=== PATIENT | female | born 1950 | race Caucasian/White ===

== ENCOUNTER 2018-03-21 20:47 | Day surgery (SDC) | payer OTHER ==
[~2018-03-21] VITALS: Ht 167.6 cm; Wt 86.2 kg
[~2018-03-21 20:47] MED LIST: ASPIRIN81 M4 PO; AUGMENTIN 875-1 EACH PO; BALANCED B COM1 EACH PO; CALCIUM 500 +1 EAC5 PO; DAILY MULTIPLE1 EACH PO; LOSARTAN-HCTZ1 EAC1 PO; PROBIOTIC1 EACH PO; SULFAMETHOXAZO1 EAC1 PO; VITAMIN C500 M7 PO
--- NOTE | 2018-03-21 21:12 | ED GI/GU/ABDOMINAL COMPLAINT ---
History of Present Illness General Chief Complaint: Abdominal Pain/Flank Pain Stated Complaint: "PAIN ACROSS MY STOMACH" Source: patient, family, old records Exam Limitations: no limitations Vital Signs & Intake/Output Vital Signs & Intake/Output Vital Signs Date Time Temp Pulse Resp B/P B/P Pulse O2 O2 Flow FiO2 Mean Ox Delivery Rate 03/21 2051 96.4 80 18 167/77 98 Room Air Allergies Coded Allergies: nitrofurantoin (From MACROBID) (Mild, HIVES 04/01/16) phenazopyridine (From PYRIDIUM) (Mild, HIVES 04/01/16) Reconcile Medications Amoxicillin/Potassium Clav (Augmentin 875-125 Tablet) 1 EACH TABLET 1 TAB PO BID SINUSITIS Ascorbic Acid (Vitamin C) 500 MG CAPSULE.ER 1 CAP PO DAILY SUPPLEMENT ( Reported) Aspirin (Aspirin*) 81 MG TAB.CHEW 1 TAB PO DAILY HEART (Reported) Calcium Carbonate/Vitamin D3 (Calcium 500 + D Tablet) 1 EACH TABLET 1 TAB PO BID SUPPL (Reported) Lactobacillus Acidophilus (Probiotic) 1 EACH CAPSULE 1 CAP PO D 0800 ( Reported) Losartan/Hydrochlorothiazide (Losartan-Hctz 50-12.5 MG Tab) 1 EACH TABLET 1 TAB PO DAILY HTN (Reported) Multivitamin (Daily Multiple Vitamin) 1 EACH TABLET 1 TAB PO DAILY SUPPLE ( Reported) Sulfamethoxazole/Trimethoprim (Sulfamethoxazole-Tmp Ds Tablet) 1 EACH TABLET 1 TAB PO BID 0800 (Reported) Vitamin B Complex & Vit C No.3 (Balanced B Complex-Vit C) 1 EACH TABLET.ER 1 TAB PO BID SUPPLEMENT (Reported) Triage Note: PT TO TRIAGE C/O PAIN ACROSS CENTER OF ABD ALL DAY, RELIEVED WITH TUMS, BUT RETURNED AFTER EATING DINNER. PT STATES AT LUNCH HAD PASTA WITH TOMATOES FROM A RESTAURANT. DENIES N/V/D. STATES HAD BM TODAY, NORMAL PER PT. DENIES URINARY S/SX. Triage Nurses Notes Reviewed? yes ? N Is pt currently ? No HPI: Shortly after having lunch patient developed a pain in her right upper quadrant. The pain then began to radiate across to her left upper quadrant. Patient was slightly nauseous however that has resolved. The pain worsened after eating dinner. Subsequently the pain has left her left upper quadrant and is currently only in the right upper quadrant. The pain is also improved however it is still present. At its worst the pain was 8 out of 10 and currently is a 4 out of 10. She is no longer nauseous. There are no fevers or chills. There is no diarrhea. The pain is cramping in nature. Past History Travel History Traveled to [place] past 21 day No Medical History Any Pertinent Medical History? see below for history Neurological: NONE EENT: NONE Cardiovascular: hypertension Respiratory: NONE Gastrointestinal: NONE Hepatic: NONE Renal: NONE Musculoskeletal: NONE Psychiatric: NONE Endocrine: NONE Blood Disorders: NONE Cancer(s): NONE PARALEGAL SUPERVISOR/Reproductive: NONE Surgical History Surgical History: non-contributory Psychosocial History What is your primary language Wallisian Tobacco Use: Never used ETOH Use: occasional use Illicit Drug Use: denies illicit drug use Family History Hx Contributory? No Review of Systems Review of Systems Constitutional: Reports: no symptoms. EENTM: Reports: no symptoms. Respiratory: Reports: no symptoms. Cardiovascular: Reports: no symptoms. GI: Reports: see HPI, abdominal pain. Genitourinary: Reports: no symptoms. Musculoskeletal: Reports: no symptoms. Skin: Reports: no symptoms. Neurological/Psychological: Reports: no symptoms. Hematologic/Endocrine: Reports: no symptoms. Immunologic/Allergic: Reports: no symptoms. All Other Systems: Reviewed and Negative Physical Exam Physical Exam General Appearance: well developed/nourished, alert, awake, anxious, mild distress Head: atraumatic, normal appearance Eyes: Bilateral: PERRL, EOMI. Ears, Nose, Throat, Mouth: hearing grossly normal, moist mucous membrane Neck: normal inspection, supple, full range of motion Respiratory: normal breath sounds, chest non-tender, no respiratory distress, lungs clear Cardiovascular: regular rate/rhythm, normal peripheral pulses Gastrointestinal: normal bowel sounds, soft, no organomegaly, tenderness (RUQ), POSITIVE MONTES'S Back: normal inspection, normal range of motion Extremities: normal range of motion Neurologic/Psych: no motor/sensory deficits, awake, alert, oriented x 3, normal gait, normal mood/affect Skin: intact, normal color, warm/dry Core Measures ACS in differential dx? No Sepsis Present: No Sepsis Focused Exam Completed? No Progress Differential Diagnosis: AMI, biliary colic, cholecystitis, gastritis, hepatitis, ischemic bowel, inflamm bowel dis, pancreatitis Plan of Care: Orders Procedure Date/time Status URINALYSIS 03/21 2058 Complete TROPONIN LEVEL 03/21 2058 Complete LIPASE 03/21 2058 Complete COMPREHENSIVE METABOLIC PANEL 03/21 2058 Complete CBC WITHOUT DIFFERENTIAL 03/21 2058 Complete AMYLASE 03/21 2058 Complete EKG 03/21 2058 Active Laboratory Tests 03/21/18 2232: Urine Color STRAW, Urine Clarity CLEAR, Urine pH 6.0, Ur Specific [place] <= 1.005, Urine Protein NEG, Urine Ketones NEG, Urine Nitrite NEG, Urine Bilirubin NEG, Urine Urobilinogen 0.2, Ur Leukocyte Esterase NEG, Ur Microscopic SEDIMENT EXAMINED, Urine RBC RARE, Urine WBC RARE, Ur Epithelial Cells RARE, Urine Bacteria RARE H, Urine Hemoglobin TRACE-INTACT, Urine Glucose NEG 03/21/18 2131: Anion Gap 10, Estimated GFR > 60, BUN/Creatinine Ratio 28.8 H, Glucose 107 H, Calcium 9.9, Total Bilirubin 0.5, AST 28, ALT 27, Alkaline Phosphatase 47, Troponin I < 0.01, Total Protein 7.1, Albumin 4.2, Globulin 2.9, Albumin/ Globulin Ratio 1.4, Amylase 63, Lipase 154, CBC w Diff NO MAN DIFF REQ, RBC 4.80 , MCV 89.8, MCH 30.0, MCHC 33.4, RDW 13.5, MPV 8.5, Gran % 62.2, Lymphocytes % 27.9, Monocytes % 6.7, Eosinophils % 2.5, Basophils % 0.7, Absolute Granulocytes 5.2, Absolute Lymphocytes 2.3, Absolute Monocytes 0.6, Absolute Eosinophils 0.2, Absolute Basophils 0.1 Diagnostic Imaging: Viewed by Me: CT Scan. Discussed w/RAD: CT Scan. Radiology Impression: PATIENT: YOMI AGUIAR PRESENT AGE: 67 PATIENT ACCOUNT NO: [id number] : 48 LOCATION: [facility] ORDERING PHYSICIAN: Yulisa Turcios MD SERVICE DATE: 03/21/18 EXAM TYPE: CAT - CT ABD & PELVIS W IV CONTRAST EXAMINATION: CT ABDOMEN AND PELVIS WITH CONTRAST CLINICAL INFORMATION: Right upper quadrant abdominal pain. Evaluate for cholecystitis. COMPARISON: MRI abdomen 04/22/2017. TECHNIQUE: Multidetector volumetric imaging was performed of the abdomen and pelvis following IV administration of 95 mL of Optiray 320 intravenous contrast. Sagittal and coronal reformatted images were obtained on the technologist's workstation. DLP: 512.96 mGy-cm FINDINGS: LUNG BASES: There is bibasilar subsegmental atelectasis. No pleural or pericardial effusion. LIVER, GALLBLADDER, AND BILIARY TREE: Liver attenuation is homogeneous with no evidence of a discrete hepatic parenchymal mass. Grossly no intrahepatic or extrahepatic biliary ductal dilatation. The gallbladder is distended with a fundal diameter of 4.8 cm. There is suspected to be mild gallbladder wall thickening for instance best illustrated on axial image 34 of 103 series 2. A few ill-defined calculi are visualized layering within the gallbladder neck. PANCREAS: Unremarkable. SPLEEN: Unremarkable. ADRENAL GLANDS: Unremarkable. KIDNEYS AND URETERS: Kidneys demonstrate symmetric corticomedullary enhancement characteristics. There is no discrete renal parenchymal mass. No abnormal perinephric inflammation or collection. No hydronephrosis. No abnormal mass or calcification is visualized along the expected course of the right or left ureter. BLADDER: Unremarkable. GASTROINTESTINAL TRACT: There is a small sliding hiatal hernia. Stomach is physiologically distended with ingested material. Small bowel is unremarkable. Grossly no evidence of obstruction. No free intraperitoneal air or fluid. There is slightly increased attenuation within the mesenteric fat that appears grossly stable when compared to prior imaging as well as a few scattered nonspecific mesenteric lymph nodes. The appendix is normal. A few diverticula are visualized primarily within the distal descending and sigmoid colon. No evidence of acute diverticulitis. ABDOMINAL WALL: No significant hernia is appreciated. VASCULAR: The abdominal aorta and inferior vena cava are grossly unremarkable. PELVIC VISCERA: The uterus is not visualized. No abnormal adnexal mass. OSSEOUS STRUCTURES: There is no acute osseous finding. No evidence of acute fracture and no spinal subluxation. IMPRESSION: There are a few ill-defined calculi that are layering within the gallbladder neck and the gallbladder is grossly distended with a fundal diameter of 4.8 cm. There is suspected gallbladder wall thickening that supports the clinical suspicion of acute cholecystitis. The sensitivity and specificity of CT for the identification of acute cholecystitis is however relatively poor therefore a right upper quadrant ultrasound is recommended for better anatomic characterization. Otherwise stable examination. Specifically the appearance of the mesenteric fat with a few scattered nonspecific mesenteric lymph nodes remains unchanged when compared to prior imaging. A few scattered diverticula are visualized within the descending and sigmoid colon. No evidence of acute diverticulitis. DICTATED BY: Ivy DEUTSCH,Vinod Reyes DATE/TIME DICTATED: 03/21/182225 QUALITY AUDITOR:FREYA DATE/TIME TRANSCRIBED:03/21/182225 CONFIDENTIAL, DO NOT COPY WITHOUT APPROPRIATE AUTHORIZATION. <Electronically signed in Other Vendor System> SIGNED BY: Ivy DEUTSCH,Vinod Reyes 03/21/18 8953 Initial ED EKG: NSR, LVH, nonspecific ST T wave chg Prior EKG: unchanged Comments: Patient is pain-free after IV Toradol. On reexamination patient is top steep tender in the right upper quadrant with positive Montes sign. Discussed with Dr. Reese. Patient will placed in on his and will have a left Cholecystectomy tomorrow. Departure Departure Disposition: STILL A PATIENT Condition: Stable Clinical Impression Primary Impression: Cholecystitis Referrals: Jus DEUTSCH,Ernst Witt (PCP/Family) Departure Forms: Customer Survey General Discharge Information Observation Note Spoke With: Geovanny Skinner DO Physician Advisor Notified: NORY DEUTSCH,YULISA Hernadez Place Patient In: Non-ED OBS Care Area Rationale for Observation: My rational for observation is as follows [PAIN CONTROL, LAP KELSEY].
[2018-03-21 21:38] LABS: ABSOLUTE BASOPHIL COUNT 0.1 /CUMM (0.0-0.2); ABSOLUTE EOSINOPHIL COUNT 0.2 /CUMM (0.0-0.7); ABSOLUTE GRANULOCYTE CT 5.2 /CUMM (1.4-6.5); ABSOLUTE LYMPH COUNT 2.3 /CUMM (1.2-3.4); ABSOLUTE MONOCYTE COUNT 0.6 /CUMM (0.10-0.60); BASOPHIL % 0.7 % (0.0-2.0); EOSINOPHIL % 2.5 % (0-5); GRANULOCYTE % 62.2 % (42.2-75.2); HEMATOCRIT 43.1 % (37-47); MEAN CORPUSCULAR HGB CONC 33.4 G/DL (33.0-37.0); MEAN CORPUSCULAR VOLUME 89.8 FL (81.0-99.0); MEAN PLATELET VOLUME 8.5 FL (7.4-10.4); PLATELET COUNT 247 /CUMM (130-400); RBC DISTRIBUTION WIDTH 13.5 % (11.5-14.5); WHITE BLOOD CELL COUNT 8.3 /CUMM (4.8-10.8)
--- NOTE | 2018-03-21 22:45 | CT SCAN REPORT ---
EXAMINATION: CT ABDOMEN AND PELVIS WITH CONTRAST CLINICAL INFORMATION: Right upper quadrant abdominal pain. Evaluate for cholecystitis. COMPARISON: MRI abdomen 04/22/2017. TECHNIQUE: Multidetector volumetric imaging was performed of the abdomen and pelvis following IV administration of 95 mL of Optiray 320 intravenous contrast. Sagittal and coronal reformatted images were obtained on the technologist's workstation. DLP: 512.96 mGy-cm FINDINGS: LUNG BASES: There is bibasilar subsegmental atelectasis. No pleural or pericardial effusion. LIVER, GALLBLADDER, AND BILIARY TREE: Liver attenuation is homogeneous with no evidence of a discrete hepatic parenchymal mass. Grossly no intrahepatic or extrahepatic biliary ductal dilatation. The gallbladder is distended with a fundal diameter of 4.8 cm. There is suspected to be mild gallbladder wall thickening for instance best illustrated on axial image 34 of 103 series 2. A few ill-defined calculi are visualized layering within the gallbladder neck. PANCREAS: Unremarkable. SPLEEN: Unremarkable. ADRENAL GLANDS: Unremarkable. KIDNEYS AND URETERS: Kidneys demonstrate symmetric corticomedullary enhancement characteristics. There is no discrete renal parenchymal mass. No abnormal perinephric inflammation or collection. No hydronephrosis. No abnormal mass or calcification is visualized along the expected course of the right or left ureter. BLADDER: Unremarkable. GASTROINTESTINAL TRACT: There is a small sliding hiatal hernia. Stomach is physiologically distended with ingested material. Small bowel is unremarkable. Grossly no evidence of obstruction. No free intraperitoneal air or fluid. There is slightly increased attenuation within the mesenteric fat that appears grossly stable when compared to prior imaging as well as a few scattered nonspecific mesenteric lymph nodes. The appendix is normal. A few diverticula are visualized primarily within the distal descending and sigmoid colon. No evidence of acute diverticulitis. ABDOMINAL WALL: No significant hernia is appreciated. VASCULAR: The abdominal aorta and inferior vena cava are grossly unremarkable. PELVIC VISCERA: The uterus is not visualized. No abnormal adnexal mass. OSSEOUS STRUCTURES: There is no acute osseous finding. No evidence of acute fracture and no spinal subluxation. IMPRESSION: There are a few ill-defined calculi that are layering within the gallbladder neck and the gallbladder is grossly distended with a fundal diameter of 4.8 cm. There is suspected gallbladder wall thickening that supports the clinical suspicion of acute cholecystitis. The sensitivity and specificity of CT for the identification of acute cholecystitis is however relatively poor therefore a right upper quadrant ultrasound is recommended for better anatomic characterization. Otherwise stable examination. Specifically the appearance of the mesenteric fat with a few scattered nonspecific mesenteric lymph nodes remains unchanged when compared to prior imaging. A few scattered diverticula are visualized within the descending and sigmoid colon. No evidence of acute diverticulitis.
--- NOTE | 2018-03-21 23:56 | History & Physical Pre-Op ---
Desiree Pleitez 03/21/18 6226: General Information and HPI MD Statement: I have seen and personally examined YOMI AGUIAR and documented this H&P. The patient is a 67 year old F who presented with a patient stated chief complaint of [ABDOMINAL PAIN]. Source of Information: patient Exam Limitations: no limitations History of Present Illness: This 67 year old female with past medical history including hypertension and gerd, presents with abdominal pain that started earlier today. She reports pain across her abdomen, with more severe pain along her right upper side. She denies history of similar episodes of pain. No fevers / chills / or sweats. No shortness of breath. No chest pains. No recent illnesses. She is unaware of a personal history of gallstones, but admits her mother had gallstones and required her gallbladder removed. Allergies/Medications Allergies: Coded Allergies: nitrofurantoin (From MACROBID) (Mild, HIVES 04/01/16) phenazopyridine (From PYRIDIUM) (Mild, HIVES 04/01/16) Past History Medical History Neurological: NONE EENT: NONE Cardiovascular: hypertension Respiratory: NONE Gastrointestinal: GERD Hepatic: NONE Renal: NONE Musculoskeletal: NONE Psychiatric: NONE Endocrine: NONE Blood Disorders: NONE Cancer(s): NONE AIRCRAFT MAINTENANCE ENGINEER/Reproductive: NONE Surgical History Pertinent Surgical History: hysterectomy Past Family/Social History Family History Relations & Conditions if any MOTHER FHx: atrial fibrillation FHx: gallstones FATHER FHx: lung cancer Psychosocial History Where Do You Live? Home Who Do You Live With? spouse Services at Home None Primary Language: Martiniquais Smoking Status: Former Smoker (5 pack/year history, 50yrs ago) ETOH Use: occasional use Illicit Drug Use: denies illicit drug use Employment History Employment: Employed Profession/Employer: HR education and training coordinator Review of Systems Review of Systems: admits: abdominal pain denies: fevers / chills / sweats, shortness of breath, chest pains, dizziness, dysuria Exam & Diagnostic Data Last 24 Hrs of Vital Signs/I&O Vital Signs Date Time Temp Pulse Resp B/P B/P Pulse O2 O2 Flow FiO2 Mean Ox Delivery Rate 03/21 2051 96.4 80 18 167/77 98 Room Air Physical Exam: General - alert & oriented x 3. comfortable. no acute distress. skin - warm, dry, and smooth. no rashes. no jaundice appreciated. Lungs - clear bilaterally. no w/r/r. Cardiac - s1s2. reg. Abdomen - soft. right upper quadrant tenderness appreciated with +murphys sign. Extremities - warm bilaterally. trace edema bilateral ankles. calves soft and nontender. nvi. Neuro - speech smooth and coordinated. no focal deficits. Last 24 Hrs of Labs/Basilio: Laboratory Tests 03/21/182: Urine Color STRAW, Urine Clarity CLEAR, Urine pH 6.0, Ur Specific [place] <= 1.005, Urine Protein NEG, Urine Ketones NEG, Urine Nitrite NEG, Urine Bilirubin NEG, Urine Urobilinogen 0.2, Ur Leukocyte Esterase NEG, Ur Microscopic SEDIMENT EXAMINED, Urine RBC RARE, Urine WBC RARE, Ur Epithelial Cells RARE, Urine Bacteria RARE H, Urine Hemoglobin TRACE-INTACT, Urine Glucose NEG 03/21/18 2131: Anion Gap 10, Estimated GFR > 60, BUN/Creatinine Ratio 28.8 H, Glucose 107 H, Calcium 9.9, Total Bilirubin 0.5, AST 28, ALT 27, Alkaline Phosphatase 47, Troponin I < 0.01, Total Protein 7.1, Albumin 4.2, Globulin 2.9, Albumin/ Globulin Ratio 1.4, Amylase 63, Lipase 154, CBC w Diff NO MAN DIFF REQ, RBC 4.80 , MCV 89.8, MCH 30.0, MCHC 33.4, RDW 13.5, MPV 8.5, Gran % 62.2, Lymphocytes % 27.9, Monocytes % 6.7, Eosinophils % 2.5, Basophils % 0.7, Absolute Granulocytes 5.2, Absolute Lymphocytes 2.3, Absolute Monocytes 0.6, Absolute Eosinophils 0.2, Absolute Basophils 0.1 Diagnostic Data Other Results EXAM TYPE: CAT - CT ABD & PELVIS W IV CONTRAST EXAMINATION: CT ABDOMEN AND PELVIS WITH CONTRAST CLINICAL INFORMATION: Right upper quadrant abdominal pain. Evaluate for cholecystitis. COMPARISON: MRI abdomen 04/22/2017. TECHNIQUE: Multidetector volumetric imaging was performed of the abdomen and pelvis following IV administration of 95 mL of Optiray 320 intravenous contrast. Sagittal and coronal reformatted images were obtained on the technologist's workstation. DLP: 512.96 mGy-cm FINDINGS: LUNG BASES: There is bibasilar subsegmental atelectasis. No pleural or pericardial effusion. LIVER, GALLBLADDER, AND BILIARY TREE: Liver attenuation is homogeneous with no evidence of a discrete hepatic parenchymal mass. Grossly no intrahepatic or extrahepatic biliary ductal dilatation. The gallbladder is distended with a fundal diameter of 4.8 cm. There is suspected to be mild gallbladder wall thickening for instance best illustrated on axial image 34 of 103 series 2. A few ill-defined calculi are visualized layering within the gallbladder neck. PANCREAS: Unremarkable. SPLEEN: Unremarkable. ADRENAL GLANDS: Unremarkable. KIDNEYS AND URETERS: Kidneys demonstrate symmetric corticomedullary enhancement characteristics. There is no discrete renal parenchymal mass. No abnormal perinephric inflammation or collection. No hydronephrosis. No abnormal mass or calcification is visualized along the expected course of the right or left ureter. BLADDER: Unremarkable. GASTROINTESTINAL TRACT: There is a small sliding hiatal hernia. Stomach is physiologically distended with ingested material. Small bowel is unremarkable. Grossly no evidence of obstruction. No free intraperitoneal air or fluid. There is slightly increased attenuation within the mesenteric fat that appears grossly stable when compared to prior imaging as well as a few scattered nonspecific mesenteric lymph nodes. The appendix is normal. A few diverticula are visualized primarily within the distal descending and sigmoid colon. No evidence of acute diverticulitis. ABDOMINAL WALL: No significant hernia is appreciated. VASCULAR: The abdominal aorta and inferior vena cava are grossly unremarkable. PELVIC VISCERA: The uterus is not visualized. No abnormal adnexal mass. OSSEOUS STRUCTURES: There is no acute osseous finding. No evidence of acute fracture and no spinal subluxation. IMPRESSION: There are a few ill-defined calculi that are layering within the gallbladder neck and the gallbladder is grossly distended with a fundal diameter of 4.8 cm. There is suspected gallbladder wall thickening that supports the clinical suspicion of acute cholecystitis. The sensitivity and specificity of CT for the identification of acute cholecystitis is however relatively poor therefore a right upper quadrant ultrasound is recommended for better anatomic characterization. Otherwise stable examination. Specifically the appearance of the mesenteric fat with a few scattered nonspecific mesenteric lymph nodes remains unchanged when compared to prior imaging. A few scattered diverticula are visualized within the descending and sigmoid colon. No evidence of acute diverticulitis. DICTATED BY: Ivy DEUTSCH,Vinod Reyes DATE/TIME DICTATED:03/21/182225 CAN MARKER:FREYA DATE/TIME TRANSCRIBED:03/21/182225 Assessment/Plan Assessment/Plan: This 67 year old female with history of htn, and gerd, presents with acute calculous cholecystitis npo after midnight pain control as needed iv unasyn q6 protonix - gi ppx hep sc post-op tomorrow losartan / hctz ordered OR tomorrow for laparoscopic cholecystectomy by observation status given possibility of discharge to home after surgery As Ranked By This Provider Problem List: 1. Cholecystitis 2. GERD (gastroesophageal reflux disease) 3. Hypertension 4. Gallstones Copies To: Jus DEUTSCH,Ernst Skinner Shell WOOTENGeovanny 03/27/18 3895: General Information and HPI Allergies/Medications Home Med list Ascorbic Acid (Vitamin C) 500 MG CAPSULE.ER 1 CAP PO DAILY SUPPLEMENT ( Reported) Aspirin (Aspirin*) 81 MG TAB.CHEW 1 TAB PO DAILY HEART (Reported) Calcium Carbonate/Vitamin D3 (Calcium 500 + D Tablet) 1 EACH TABLET 1 TAB PO BID SUPPL (Reported) Lactobacillus Acidophilus (Probiotic) 1 EACH CAPSULE 1 CAP PO D 0800 ( Reported) Losartan/Hydrochlorothiazide (Losartan-Hctz 50-12.5 MG Tab) 1 EACH TABLET 1 TAB PO DAILY HTN (Reported) Multivitamin (Daily Multiple Vitamin) 1 EACH TABLET 1 TAB PO DAILY SUPPLE ( Reported) Oxycodone HCl/Acetaminophen (Percocet 5-325 MG Tablet) 5 MG-325 MG TABLET 1-2 TAB PO Q4-6 PRN PRN pain any scale tylenol alternatively. do not combine. Vitamin B Complex & Vit C No.3 (Balanced B Complex-Vit C) 1 EACH TABLET.ER 1 TAB PO BID SUPPLEMENT (Reported) Attending MD Review Statement Attending Statement Attending MD Statement: discuss w/resident/PA/SKIN DRIER, agreed w/resident/PA/SKIN DRIER, discussed with family, reviewed images
[2018-03-22 09:57] VITALS: BP 147/68
--- NOTE | 2018-03-22 11:25 | Patient Discharge Instructions ---
Discharge Instructions General Discharge Information You were seen/treated for: gallstones, acute cholecystitis You had these procedures: laparoscopic cholecystectomy (03/22/18) Watch for these problems: fever>101.3, increased pain, redness/swelling/drainage, dizziness, shortness of breath, chest pains No bath, but you may shower: Yes Other wound care: incisions closed with skin glue. ok to shower. keep incisions clean & dry. Diet Continue normal diet: Yes Recommended Diet: Low Fat Activity Full Activity/No Limits: No Activity Self Limited: Yes Pounds, do NOT lift more than: 10 Other activity limits: no heavy lifting. no strenuous activity. Acute Coronary Syndrome Inclusion Criteria At DC or during hospital stay patient has or had the following: ACS DIAGNOSIS No Discharge Core Measures Meds if any: Prescribed or Continued at Discharge Meds if any: NOT Prescribed or Continued at Discharge Congestive Heart Failure Inclusion Criteria At DC or during hospital stay patient has or had the following: CHF DIAGNOSIS No Discharge Core Measures Meds if any: Prescribed or Continued at Discharge Meds if any: NOT Prescribed or Continued at Discharge Cerebrovascular accident Inclusion Criteria At DC or during hospital stay patient has or had the following: CVA/TIA Diagnosis No Discharge Core Measures Meds if any: Prescribed or Continued at Discharge Meds if any: NOT Prescribed or Continued at Discharge Venous thromboembolism Inclusion Criteria VTE Diagnosis No VTE Type NONE VTE Confirmed by (Test) NONE Discharge Core Measures - Per Current guidelines, there needs to be overlap - treatment for the first 5 days of Warfarin therapy. - If discharged on Warfarin prior to 5 days of - overlap therapy, the patient will need to be - assessed for post discharge needs including - *Post discharge parental anticoagulation - *Warfarin and/or parental anticoagulation education - *Follow up date to check INR post discharge At least 5 days overlap therapy as Inpatient No Meds if any: Prescribed or Continued at Discharge Note: Overlap Therapy is Warfarin and Anticoagulant Meds if any: NOT Prescribed or Continued at Discharge
[2018-03-22] MEDS ORDERED: PERCOCET 5-3251 EACH PO ×2 (11:30→11:31)
--- NOTE | 2018-03-22 11:40 | Surg Short-stay <48hrs Dis Sum ---
Visit Information Visit Dates Admission Date: 03/21/18 Discharge Date: 03/22/18 Surgical Short Stay DC Summary Admission Diagnosis: acute calculous cholecystitis Final Diagnosis: same as above, s/p laparoscopic cholecystectomy (03/22/18) Procedure(s): laparoscopic cholecystectomy (03/22/18) Summary/Significant Findings: Presented to the ED on 03/21/18 with abdominal pain, and was found to have acute calculous cholecystitis by CT scan. She was started on iv unasyn and placed into observation status. She was taken to the OR on 03/22/18 by for a laparoscopic cholecystectomy. She was discharged to home once her pain was controlled and she was tolerating a diet. Condition at Discharge: stable Discharge Disposition: home or self care Discharge instructions provided to patient/family: Yes Post discharge follow-up plan: 2 week follow up appointment with Copies to: Jus DEUTSCH,Ernst Witt
--- NOTE | 2018-03-28 10:47 | Operative Report ---
Operative/Inv Procedure Report Surgery Date: 03/22/18 Name of Procedure: laparoscopic cholecystectomy Pre-Operative Diagnosis: cholecystitis Post-Operative Diagnosis: as above Estimated Blood Loss: less than 50ml Surgeon/Valet Parker: Jorge Velez MD Anesthesia: general endotracheal tube IV Fluids: 1Lns Implants: none Urine Output: not monitored Drains: none Specimens: gallbladder Microbiology: none Tourniquet: none Complications: none Condition: improved and transfered to PACU Operative Indication: cholecystitis Operative/Procedure Note Note: after informed consent was obtained with all the risks and benefits of the procedure explained in full detail the patient was taken to the operating room and placed supine on the operating room table. once on the table while she was still awake a surgical time our was performed. then the general endotracheal anesthesia was induced. the patient was then prepped with a chlorhexidine based solution which was allowed to dry for 3 minutes and then a sterile drape placed. A surgical pause was then performed. attention was then turned to the umbilicus where a 1.5cm transverse incision was made just above the umbilicus with a 15 blade. then with electrocautery, dissection to the fascia was performed and a jesus clamp used to grasp the umbilical stalk. then an incision was made in the linea alba measureing approximately a centimeter with the electrocautery, and the peritoneum breached with a julieth clamp. a loose figure of 8 0 Vicryl suture was then placed in the fascia to be used as a stay stitch and then later for closing. a 10mm agarwal was placed, secured and insufflation to 15mmHg was obtained. then under direct vision a 11mm port was placed subxyphoid, and then 2 5mm ports in the RUQ. these were all without complication and no bleeding noted. then the dome of the gallbladder was grasped with a wavy grasper and retracted up and over the liver. there were some adhession of omentum and transverse colon to the gallbladder which were taken down with electrcautery hook. then with blunt and electrocautery dissection, the fundus was exposed and grasped. this was retracted and then the cystic duct and artery dissected free from the surrounding fibrous tissue which was dense and very fatty. the critical view of safety was obtained, and then 2 10mm clips were placed proximally and 1 distally on both of the structures. then they were transected and the gallbladder carefully removed from the liver bed. hemostasis was maintained. the gallbladder was then placed in an endocatch bag, the liver checked for hemostasis again and the abdomen thrououghly washed out with suction and water. the subxyphoid and RUQ ports were removed under direct vision and hemostasis noted, insufflation was let down, the umbilical agarwal was removed, then gallbadder removed, and then the 0 vicryl was tied down and the fascia closed. 4-0 monocryl was used for skin closure, and then skin glue as a dressing. all needle and sponge counts were correct, and I was scrubbed for the entire case. patient was transfered to the PACU without incident. Findings: inflammed gallbladder Discharge Disposition: PACU CC: Rosie DEUTSCH,Jorge
== END 2018-03-22 ==
LOC: ERH 20:47 → ERHI 23:14 → ERH 23:14 → ENTRNSPT 03-22 10:15 → EDTRNSPT 03-22 10:22 → EDTRNSPTSTS 03-22 10:22 → CMPTRNSPT 03-22 10:34 → STS 03-22 10:45 → ERHI 03-22 10:45
PROVIDERS: Emergency Medicine
DX: K80.10 Calculus of gallbladder with chronic cholecystitis without obstruction (principal); I10 Essential (primary) hypertension; K21.9 Gastro-esophageal reflux disease without esophagitis
CPT/HCPCS: 74177; 81001; 93005; 93010; 96361; 96374; C9290; J0131; J1644; J1885; J3490; J7042

== ENCOUNTER 2018-05-10 05:14 | Emergency (ER) | payer OTHER ==
[~2018-05-10 05:14] MED LIST changes: +PERCOCET 5-3251 EACH PO
--- NOTE | 2018-05-10 07:30 | ED GENERAL ADULT ---
See Addendum History of Present Illness General Chief Complaint: Headache Stated Complaint: GORE, DIZZINESS Source: patient Exam Limitations: no limitations Vital Signs & Intake/Output Vital Signs & Intake/Output Vital Signs Date Time Temp Pulse Resp B/P B/P Pulse O2 O2 Flow FiO2 Mean Ox Delivery Rate 05/10 0637 98.3 58 18 169/74 98 Room Air 05/10 0559 69 20 167/81 97 Allergies Coded Allergies: nitrofurantoin (From MACROBID) (Mild, HIVES 04/01/16) phenazopyridine (From PYRIDIUM) (Mild, HIVES 04/01/16) Reconcile Medications Ascorbic Acid (Vitamin C) 500 MG CAPSULE.ER 1 CAP PO DAILY SUPPLEMENT ( Reported) Aspirin (Aspirin*) 81 MG TAB.CHEW 1 TAB PO DAILY HEART (Reported) Calcium Carbonate/Vitamin D3 (Calcium 500 + D Tablet) 1 EACH TABLET 1 TAB PO BID SUPPL (Reported) Lactobacillus Acidophilus (Probiotic) 1 EACH CAPSULE 1 CAP PO D 0800 ( Reported) Losartan/Hydrochlorothiazide (Losartan-Hctz 50-12.5 MG Tab) 1 EACH TABLET 1 TAB PO DAILY HTN (Reported) Multivitamin (Daily Multiple Vitamin) 1 EACH TABLET 1 TAB PO DAILY SUPPLE ( Reported) Oxycodone HCl/Acetaminophen (Percocet 5-325 MG Tablet) 5 MG-325 MG TABLET 1-2 TAB PO Q4-6 PRN PRN pain any scale tylenol alternatively. do not combine. Vitamin B Complex & Vit C No.3 (Balanced B Complex-Vit C) 1 EACH TABLET.ER 1 TAB PO BID SUPPLEMENT (Reported) Triage Note: PER PT STARTED WITH GORE ON TUESDAY, THEN IT WENT AWAY, TONIGHT WENT TO [place] AND WAS DIZZY, WAS OK SITTING BUT WHEN MOVING MORE DIZZY AND NAUSEOUS, GORE RETURNED Triage Nurses Notes Reviewed? yes HPI: 67-year-old female with past medical history of hypertension, GERD presented to the emergency department with dizziness/lightheadedness and headache. Patient reports lightheadedness/dizziness which lasted this morning when she woke up and sit up from the bed to go to the bathroom. The patient reports that she had to hold onto something to prevent a fall. She has not been lightheaded/ dizzy in the past. Patient reports that the headache started on Tuesday. It was gradual in onset became worse yesterday and is better today. The headache was pressure-like and on the top of her head on her face. The patient has been having nasal congestion and chronic sinusitis over the past 3 months. She did saline washes but they did not help with the nasal congestion. Patient does not report any chest pain/shortness of breath/abdominal pain/fevers /chills/racing of the heart/dysuria/change in bowel habits. Past History Travel History Traveled to [place] past 21 day No Medical History Any Pertinent Medical History? see below for history Neurological: NONE EENT: NONE Cardiovascular: hypertension Respiratory: NONE Gastrointestinal: GERD Hepatic: NONE Renal: NONE Musculoskeletal: NONE Psychiatric: NONE Endocrine: NONE Blood Disorders: NONE Cancer(s): NONE SALES ORDER COORDINATOR/Reproductive: NONE Surgical History Surgical History: hysterectomy, lap-nick 6 weeks ago Psychosocial History Services at Home None What is your primary language Moroccan Tobacco Use: Never used Family History Family History, If Any: MOTHER FHx: atrial fibrillation FHx: gallstones FATHER FHx: lung cancer Hx Contributory? Yes Review of Systems Review of Systems Constitutional: Reports: see HPI. Physical Exam Physical Exam General Appearance: well developed/nourished, no apparent distress, alert, awake Head: atraumatic, normal appearance Eyes: Bilateral: normal appearance, PERRL. Ears, Nose, Throat: normal pharynx, normal ENT inspection, hearing grossly normal Neck: normal inspection Respiratory: normal breath sounds, chest non-tender, no respiratory distress, lungs clear Cardiovascular: regular rate/rhythm Gastrointestinal: normal bowel sounds, soft, non-tender, no organomegaly Core Measures ACS in differential dx? No CVA/TIA Diagnosis: No Sepsis Present: No Sepsis Focused Exam Completed? Yes Progress Differential Diagnoses I considered the following diagnoses in my evaluation of the patient: [BPPV, Labyrinthitis, orthostatic hypotension] Plan of Care: Orders Procedure Date/time Status Saline Lock 05/10 737 Active TROPONIN LEVEL 05/10 737 Active LYME TITRE 05/10 737 Active COMPREHENSIVE METABOLIC PANEL 05/10 737 Active CBC WITHOUT DIFFERENTIAL 05/10 737 Active EKG 05/[address] HEAD WO IV CONTRAST 05/10 737 Active Current Medications Sig/Paulo Start time Last Medication Dose Stop Time Status Admin Meclizine HCl 25 MG ONCE ONE 05/10 745 AC 05/10 (Antivert) 05/10 746 0742 Initial ED EKG: none Departure Departure Disposition: STILL A PATIENT Condition: Stable Clinical Impression Primary Impression: Labyrinthitis Secondary Impressions: BPPV (benign paroxysmal positional vertigo) Referrals: Jus DEUTSCH,Ernst Witt (PCP/Family) Departure Forms: Customer Survey General Discharge Information Critical Care Note Critical Care Note Critical Care Time: non-applicable ED Attending Observation Initial Observation Note: I have seen and personally examined YOMI AGUIAR on 05/10/18 at 0742. I agree with the current emergency department documentation. The disposition (admission or discharge) is uncertain at this time, she needs a period of observation for the following reason(s): [vertigo, lightheadedness, headache] The ED Nurse caring for this patient has been personally informed as to what the patient is being observed for.
[2018-05-10 08:07] LABS: ABSOLUTE BASOPHIL COUNT 0 /CUMM (0.0-0.2); ABSOLUTE EOSINOPHIL COUNT 0.1 /CUMM (0.0-0.7); ABSOLUTE GRANULOCYTE CT 5.2 /CUMM (1.4-6.5); ABSOLUTE LYMPH COUNT 1.4 /CUMM (1.2-3.4); ABSOLUTE MONOCYTE COUNT 0.4 /CUMM (0.10-0.60); BASOPHIL % 0.4 % (0.0-2.0); EOSINOPHIL % 1.4 % (0-5); GRANULOCYTE % 73.4 % (42.2-75.2); HEMATOCRIT 41.2 % (37-47); MEAN CORPUSCULAR HGB 30.7 PG (27.0-31.0); MEAN CORPUSCULAR HGB CONC 34.3 G/DL (33.0-37.0); MEAN CORPUSCULAR VOLUME 89.6 FL (81.0-99.0); PLATELET COUNT 235 /CUMM (130-400); RBC DISTRIBUTION WIDTH 13.7 % (11.5-14.5); WHITE BLOOD CELL COUNT 7.1 /CUMM (4.8-10.8)
--- NOTE | 2018-05-10 08:27 | CT SCAN REPORT ---
EXAMINATION: CT HEAD WITHOUT CONTRAST CLINICAL INFORMATION: Vertigo. Presumptive diagnosis of cerebellar infarct. COMPARISON: None TECHNIQUE: Contiguous axial imaging was performed from the skull base to vertex without intravenous administration of contrast. DLP: 618.25 mGy-cm FINDINGS: There is no evidence of acute intracranial hemorrhage or territorial infarction. No abnormal mass effect or midline shift is seen. [place] to white matter differentiation is well preserved. No extra-axial fluid collections are identified. The ventricles and sulci are mildly enlarged, consistent with involutional changes. There is no abnormal attenuation within the brain parenchyma. The osseous structures and soft tissues are normal. The mastoid air cells and visualized portions of the paranasal sinuses are well aerated. IMPRESSION: No acute intracranial pathology.
[2018-05-10] MEDS ORDERED: MECLIZINE HCL25 MG PO (10:03)
[2018-05-10 10:10] VITALS: BP 138/72
== END 2018-05-10 10:10 ==
LOC: ERH 05:14
PROVIDERS: Internal Medicine
DX: H83.09 Labyrinthitis, unspecified ear (principal); H81.10 Benign paroxysmal vertigo, unspecified ear; R42 Dizziness and giddiness; R51 Headache
CPT/HCPCS: 86618; 93005; 93010